=== PATIENT | male | born 1970 | race African-American/Black ===

== ENCOUNTER 2018-06-21 18:56 | Emergency (ER) | payer SELFPAY ==
[2018-06-21] MEDS ORDERED: traMADol HCl 50 MG TAB ONE (20:29)
--- NOTE | 2018-06-21 20:48 | RAD ---
FOUR VIEWS OF THE RIGHT KNEE: 06/21/18 COMPARISON: None. HISTORY: Knee pain for a few days. FINDINGS: There is mild medial and lateral compartment narrowing. There is degenerative subchondral sclerosis i nvolving the lateral femoral condyle and the lateral tibial plateau with osteophyte formation of the lateral femoral condyle. There is mild/moderate patellofemoral joint space narrowing with superior an d inferior osteophyte formation involving the anterior aspect of the patella. There is no knee joint effusion, displaced fracture or evidence of dislocation. IMPRESSION: Degenerative joint disease. No acute osseous abnormality. POS: [facility]
== END 2018-06-21 20:45 | disposition home or self-care (01) ==
LOC: ERS 18:56
DX: M17.12 Unilateral primary osteoarthritis, left knee (principal)